=== PATIENT | female | born 1995 | race Caucasian/White ===

== ENCOUNTER 2017-08-27 18:50 | Emergency (ER) | payer OTHER ==
[2017-08-27 19:00] VITALS: BP 140/83; PULSE 112; TEMP 100; BMI 20.9
--- NOTE | 2017-08-27 19:09 | PDOC ---
History of Present Illness - General History Source: Patient Exam Limitations: No Limitations - History of Present Illness Initial Comments: 08/27/17 19:23 The patient is a 22 year old female with no significant PMH who presents to the emergency department with a sore throat for 2 days. The patient reports that she began to feel as if her tonsils were swollen since yesterday. She reports an associated fever with her sore throat. The patient denies any other symptoms. She denies any chills, nausea, vomit, diarrhea, constipation or urinary complaints. She denies any chest pain, shortness of breath, headache and dizziness. The patient denies any other symptoms or complaints. PAST MEDICAL HISTORY: no significant history PAST SURGICAL HISTORY: no significant history FAMILY HISTORY: no pertinent history SOCIAL HISTORY: Pt lives with family and is employed. MEDICATIONS: reviewed ALLERGIES: As per nursing notes General: (+)fever.No chills, no weakness, no weight loss HEENT: (+)sore throat. No change in vision. No ear pain CardioVascular: No chest pain or shortness of breath Respiratory:No cough, or wheezing. Gastrointestinal: no nausea, vomiting, diarrhea or constipation, No rectal bleeding Genitourinary: No dysuria, hematuria, or frequency Musculoskeletal: No joint or muscle pain or swelling Neurologic: No headache, vertigo, dizziness or loss of consciousness Psychiatric: nor depression Skin: No rashes or easy bruising Endocrine: no increased thirst or abnormal weight change Allergic: no skin or latex allergy All other systems reviewed and normal GENERAL: The patient is awake, alert, and fully oriented, in no acute distress. HEAD: (+)tonsils enlarged with erythema and exudates. Head Normal with no signs of trauma. Neck: (+)bilateral submandibular lymphadenopathy. Supple, no meningeal signs. EYES: Pupils equal, round and reactive to light, extraocular movements intact, sclera anicteric, conjunctiva clear. EXTREMITIES: Normal range of motion, no edema. NEUROLOGICAL: Normal speech, normal gait. PSYCH: Normal mood, normal affect. SKIN: Warm, Dry, normal turgor, no rashes or lesions noted. <Genevieve Urena - Last Filed: 08/27/17 19:23> - General History Source: Patient Exam Limitations: No Limitations - History of Present Illness Initial Comments: 08/27/17 20:09 A portion of this note was documented by scribe services under my direction. I have reviewed the details of the note, within reason, and agree with the documentation. The case summary and management plan written by me. Assessment and plan: This is 22-year-old female comes in with 2 days of fever sore throat. On exam patient has an exudative pharyngitis submandibular lymphadenopathy and a low-grade fever ED. Patient is presumptive strep pharyngitis. Patient given azithromycin first dose here and sent home with a prescription for azithromycin. Patient also had a Monospot drawn. Patient was told if she is not improving within 48 hours she should call as a Monospot most likely will be positive. <Taurus Barajas I - Last Filed: 08/27/17 20:10> - General Chief Complaint: Sore Throat Stated Complaint: SORE THROAT Time Seen by Provider: 08/27/17 19:08 Past History <Genevieve Urena - Last Filed: 08/27/17 19:23> - Past Medical History COPD: No Other medical history: LIVER INJURY AFTER MEDICATION, HOSPITILIZED 1 YEAR - Immunization History Immunization Up to Date: Yes - Suicide/Smoking/Psychosocial Hx Smoking History: Never smoked Have you smoked in the past 12 months: No Information on smoking cessation initiated: No Hx Alcohol Use: No Drug/Substance Use Hx: No Substance Use Type: None <Taurus Barajas I - Last Filed: 08/27/17 20:10> - Past Medical History Allergies/Adverse Reactions: Allergies Allergy/AdvReac Type Severity Reaction Status Date / Time Penicillins Allergy Verified 08/27/17 19:22 Home Medications: Ambulatory Orders Azithromycin 250 mg PO DAILY #4 tablet 08/27/17 Ibuprofen [Advil -] 200 mg PO QID 08/27/17 *Physical Exam - Vital Signs Last Vital Signs Temp Pulse Resp BP Pulse Ox 100 F H 112 H 20 140/83 100 08/27/17 18:51 08/27/17 18:51 08/27/17 18:51 08/27/17 18:51 08/27/17 18:51 <Genevieve Urena - Last Filed: 08/27/17 19:23> - Vital Signs Last Vital Signs Temp Pulse Resp BP Pulse Ox 100 F H 112 H 20 140/83 100 08/27/17 18:51 08/27/17 18:51 08/27/17 18:51 08/27/17 18:51 08/27/17 18:51 <Taurus Barajas I - Last Filed: 08/27/17 20:10> ED Treatment Course - Medications Given in the ED: ED Medications Discontinued Medications Generic Name Dose Route Start Last Admin Trade Name Dominic PRN Reason Stop Dose Admin Acetaminophen 1,000 mg 08/27/17 19:13 08/27/17 19:21 Tylenol - PO 08/27/17 19:14 1,000 mg ONCE ONE Administration <Genevieve Urena - Last Filed: 08/27/17 19:23> *DC/Admit/Observation/Transfer - Attestations Scribe Attestion: 08/27/17 19:23 Documentation prepared by Genevieve Urena, acting as medical claims manager for Taurus Barajas MD. <Genevieve Urena - Last Filed: 08/27/17 19:23> - Discharge Dispostion Decision to Admit order: No <Taurus Barajas I - Last Filed: 08/27/17 20:10> Diagnosis at time of Disposition: Strep pharyngitis - Discharge Dispostion Disposition: HOME Condition at time of disposition: Good - Prescriptions Prescriptions: Azithromycin 250 mg PO DAILY #4 tablet - Patient Instructions Printed Discharge Instructions: DI for Strep Throat Additional Instructions: Make sure you get the prescription filled for azithromycin and take one tablet a day for the next 4 days. Take your next dose tomorrow night as you were given a dose here in the emergency department. Tylenol or Motrin as needed for pain or fevers. A test for mono was also sent if you're not better in 48 hours most likely this is mono and not strep. You can call here for the results Friday afternoon. Return to the emergency department immediately with ANY new, persistent or worsening symptoms. Continue any medications as previously prescribed by your physician. You should follow up with your primary doctor as soon as possible regarding today's emergency department visit. . Please make sure your doctor reviews the results of your emergency evaluation. Thank you for coming to the Emergency Department today for your care. It was a pleasure to see you today. Please note that your evaluation is INCOMPLETE until you follow-up with your doctor.
[2017-08-27] MEDS ORDERED: PENICILLIN G BENZATHINE 1,200,000 UNIT/2 ML PFS IM ONE ×2 (19:13→19:17)
[2017-08-27] MEDS ORDERED: ACETAMINOPHEN 500 MG TABLET (FP) PO ONE (19:13)
[2017-08-27] MEDS ORDERED: ACETAMINOPHEN 500 MG TABLET (FP) ONE (19:17)
[2017-08-27] MEDS ORDERED: AZITHROMYCIN 500 MG TABLET PO ONE (19:24)
[2017-08-27] MEDS ORDERED: AZITHROMYCIN 500 MG TABLET ONE (19:34)
--- NOTE | 2017-08-28 09:21 | PDOC ---
Patient Follow-up (Call Back) - Post ED Follow - Up Chief Complaint: Sore Throat Condition at time of discharge: Good Disposition at time of original discharge: HOME Reason for Call Back: Abnwl. Lab Signs/Symptoms Improved: Yes - Disposition Rx Needed: No Additional Instructions/Notes: fPt noteified that her mono + pt does not play sports or any physical activity - warned her of activities that may cause inujury/splenic rupture still has a fever, sore throat. no difficulty breathing or abd pain. recommended supportive mangaement return precautions to the ED PMD fu was dissussed
== END 2017-08-27 19:39 | disposition home or self-care (01) ==
LOC: FER 18:50
DX: J02.0 Streptococcal pharyngitis (principal)
CPT/HCPCS: 36415; 86308; 99282-25